=== PATIENT | female | born 1955 | race Caucasian/White ===

== ENCOUNTER 2022-01-30 12:36 | Outpatient (CLI) | payer MEDICARE, SELFPAY ==
--- NOTE | ~2022-01-30 | MMUS_ITS ---
EXAMINATION: MM diagnostic jose BI w magnus, US breast LT complete HISTORY: Left malignant neoplasm TECHNIQUE: ML, MLO and CC 3-D tomosynthesis images of both breasts were performed and synthetic 2-D i mages were generated. CAD analysis was submitted and interpreted. High resolution breast ultrasound w as performed. COMPARISON: None BREAST PARENCHYMAL COMPOSITION: The left breast is heterogeneously dense, which may obscure small mas ses. FINDINGS: MAMMOGRAPHIC FINDINGS: Right breast: No suspicious mass or architectural distortion, malignant calcification, skin thickeni ng or retraction of the right breast is detected. Left breast: There is a large irregular spiculated mass in the upper outer quadrant of the left darian st, with internal vascularity. This is highly suggestive of malignancy. There are multiple up to 8 mm surrounding masses suggesting satellite malignant lesions. There is prominent accentuation of fibroglandular stroma and skin thickening throughout the left darian st, consistent with extensive spread of malignancy, malignant obstruction of lymphatics and/or inflam matory breast cancer. ULTRASOUND: There is an irregular spiculated heterogeneous hypoechoic mass measuring 1.7 x 4.9 x 2.2 cm at 10:00 to 3:00 near the areola. An irregular hypoechoic mass measuring approximately 2.3 x 2.3 cm is noted in the left axillary tail area, which may be metastatic or synchronous breast malignancy. IMPRESSION: Large irregular mass extending from 10:00 to 3:00, with satellite lesions, accentuated f ibroglandular stroma, skin thickening, consistent with extensive malignancy Breast surgeon consultation is recommended. BI-RADS category 5, highly suggestive of malignancy. Reviewed, dictated and finalized at location A. IMPRESSION: Large irregular mass extending from 10:00 to 3:00, with satellite lesions, accentuated fibroglandular stroma, skin thickening, consistent with ex tensive malignancy Breast surgeon consultation is recommended. BI-RADS category 5, highly suggestive of malignancy.
== END 2022-01-30 12:37 | disposition home or self-care (01) ==
PROVIDERS: Visit Provider Internal Medicine Hematology & Oncology
DX: C50.812 Malignant neoplasm of overlapping sites of left female breast (principal)
CPT/HCPCS: 76641; 77062; 77066; G0279